=== PATIENT | male | born 1940 | race Caucasian/White ===

== ENCOUNTER 2025-09-02 06:04 | Inpatient (IN) | payer MEDICARE, SELFPAY ==
[2025-08-29 10:16] VITALS: BMI 22.9
[2025-08-29 10:54] LABS: Hematocrit 48.5 % (39.0-52.0); Hemoglobin 16.2 g/dL (13.0-18.0); Mean Corp Hgb Conc. 33.4 g/dL (33.0-37.0); Mean Corpuscular Volume 89.8 fL (80.0-94.0); Red Cell Dist. Width 12.1 % (11.5-14.5)
[2025-08-29 10:55] LABS: Nucleated Red Blood Cells % 0 % (-)
[2025-08-29 10:57] LABS: APTT 26.4 Sec (23.4-35.0); INR 1.11; PT 14.1 Sec (11.4-14.6)
[2025-08-29 11:36] LABS: Blood Urea Nitrogen 27 mg/dl (9-20); Calcium 9.9 mg/dl (8.4-10.2); Carbon Dioxide 30 mmol/L (22-30); Chloride 102 mmol/L (98-107); Estimated Creatinine Clearance 48 ml/min; Glucose 99 mg/dl (70-99); Potassium 5.2 mmol/L (3.5-5.1); Sodium 137 mmol/L (135-145); eGFR > 60.00
[2025-09-02] VITALS (13 sets, daily range): BP systolic 125–147; BP diastolic 58–82; BMI 21.8
[2025-09-02] MEDS: NSS 500 IV (06:51)
[2025-09-02] MEDS: BACTROBAN NASAL 1 GRAM NASAL (06:51)
[2025-09-02] MEDS: PERIDEX 0.12% ORAL RINSE 15 ML PO (06:51)
--- NOTE | 2025-09-02 07:05 | W.SUR.PREOP ---
Pre-Operative Surgical Note
-
I have examined this patient prior to the performance of the scheduled procedure.
The patient's condition is unchanged from the time of the current History and
Physical and the patient is able to undergo the scheduled procedure.
--- NOTE | 2025-09-02 10:12 | W.SUR.POST ---
Surgical Immediate Post Op
Note
Pre Op Diagnosis: AAA
Post Op Diagnosis: AAA
Procedure Performed: EVAR
Primary Surgeon: Azam Redman M.D.
intellectual property legal assistant: MATTHIAS Celaya
Anesthesia: GETA
Estimated Blood Loss: 100 mL
Fluids: See anesthesia flowsheet
Drains/Shunts: N/A
Specimens/Cultures: N/A
Doppler/Duplex/Angio (Y/N): Y
Complications: None
Operative Findings: Successful exclusion of AAA sac via endovascular approach, successful EVAR
[2025-09-02 11:05] LABS: Hematocrit 40.7 % (39.0-52.0); Hemoglobin 13.6 g/dL (13.0-18.0); Mean Corp Hgb Conc. 33.4 g/dL (33.0-37.0); Mean Corpuscular Volume 93.6 fL (80.0-94.0); Platelet Count 117 10^3/uL (130-400); Red Cell Dist. Width 11.9 % (11.5-14.5)
[2025-09-02] MEDS: NSS 1000 IV ×2 (11:30→19:37)
--- NOTE | 2025-09-02 11:30 | PTCARENOTE ---
Rec'd pt from PACU. Pt rec'd A&Ox3. Pleasant. CHALKYITSIK....wears bilateral hearing aids. S1 S2 reg w/ A pacing on monitor. Left chest pacer noted. +DP's. No edema. On R/A...sats 95%. Lungs clear but diminished and coarse in left base. Coughing
and deep breathing encouraged. Abdomen round...+BS. LBM yesterday. Temp sensing long draining yellow urine. Skin pale in color...sacrum intact. Bilateral groin incisions YAMILA w/ surgical glue. Flat in bed until 1300 then HOB 30 degrees max x 4
hrs. Afebrile. VS documented. Left radial abel flushed and zeroed. Multiple INT's...NSS infusing @ 80ml/hr. Call díaz in reach. Safe environment confirmed.
[2025-09-02 12:28] LABS: Blood Urea Nitrogen 20 mg/dl (9-20); Calcium 8.1 mg/dl (8.4-10.2); Carbon Dioxide 24 mmol/L (22-30); Chloride 108 mmol/L (98-107); Estimated Creatinine Clearance 48 ml/min; Glucose 143 mg/dl (70-99); Potassium 4.4 mmol/L (3.5-5.1); Sodium 135 mmol/L (135-145); eGFR > 60.00
--- NOTE | 2025-09-02 12:49 | CON.INTV ---
Consultation
Consultation Request
Date/Time Consultation Requested: 09/02/2025
Date/Time Consultation Performed: 09/02/2025
Requesting Provider: Dr. Redman
Performing Provider: Dr. Van Cooper
Reason for Consultation: s/p EVAR - post operative management.
Medical History
-
History of Present Illness:
85-year-old man with past medical history significant for abdominal aortic aneurysm, hypertension, hyperlipidemia, pacemaker placed. Electively admitted for EVAR. Procedure underwent 09/02/[address] Redman without complication.
Currently in the critical care unit. Denies any abdominal pain.
Denies lower extremity pain.
Denies shortness of breath
Denies nausea or vomiting
Hemodynamically stable.
Past Medical History
Past Medical History: Other (See assessement and plan section)
Social History
Tobacco: Non-smoker
Alcohol: Occasional (Occasional glass of wine)
Drug: None
Living: With Family
Allergies / Home Medications
Allergies
Allergy/AdvReac Type Severity Reaction Status Date / Time
No Known Allergies Allergy Verified 09/02/25 06:36
Home Medications
�Medication �Instructions �Recorded �Confirmed �Last Taken �Type
Beet Root Supp 1 cap PO .BEFORE LUNCH 08/27/25 09/02/25 08/30/25 08:00 History
Vitamin C 1 tab PO .BEFORE LUNCH 08/27/25 09/02/25 08/30/25 08:00 History
Vitamin D3 1 tab PO .BEFORE LUNCH 08/27/25 09/02/25 08/30/25 08:00 History
amlodipine 5 mg tablet 5 mg PO .BEFORE LUNCH 08/27/25 09/02/25 09/01/25 09:00 History
aspirin 81 mg tablet 81 mg PO .BEFORE LUNCH 08/27/25 09/02/25 09/01/25 09:00 History
magnesium 1 tab PO .BEFORE LUNCH 08/27/25 09/02/25 09/01/25 09:00 History
simvastatin 40 mg tablet 40 mg PO .BEFORE LUNCH 08/27/25 09/02/25 08/30/25 08:00 History
valsartan 80 mg tablet 80 mg PO .BEFORE LUNCH 08/27/25 09/02/25 09/01/25 09:00 History
zinc 1 tab PO .BEFORE LUNCH 08/27/25 09/02/25 08/30/25 08:00 History
Review of Systems
-
History Source: Patient
All other systems: Negative unless noted
Vitals / Labs / Diagnostic Testing
Vital Signs
Temp Pulse Resp BP Pulse Ox
96 F L 60 12 142/82 99
09/02/25 11:59 09/02/25 11:19 09/02/25 11:19 09/02/25 11:19 09/02/25 11:19
Lab Data
09/02/25 10:46
09/02/25 10:46
Diagnostic Testing:
Physical Exam
-
HEENT: Normocephalic
Cardiovascular: S1/S2
Respiratory: Non-Labored Respirations
GI: Soft and Non Distended
Neurology: Awake and Alert
Skin: Warm and Other (Peripheral pulses present.)
General: Comfortable
Assessment
-
85-year-old man with past medical history noted. Electively admitted from the outpatient setting to undergo EVAR. Procedure underwent without complication 09/02/2025. Transferred to the critical care unit for postoperative management.
Status post EVAR
History of infra renal aortic aneurysm
Conditions present prior admission:
Hypertension
Hyperlipidemia
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
Assessment and plan:
Postoperative surgical intensive care unit monitoring
Supplemental oxygen as needed
Incentive spirometry
Aspiration precautions
Nebulizers if needed-currently not bronchospastic
Chest x-ray 08/29/2025 -partial opacification of the right lateral costophrenic angle possible postinflammatory scarring. Otherwise normal
Analgesia with narcotics as needed-monitor respiratory status closely.
Currently pain is controlled.
Neuro and vascular checks per protocol
Vascular surgery following-correspondence and operative notes reviewed
Monitor blood pressure
Cardene drip if needed
Restart outpatient antihypertensive.
Follow hemoglobin-currently stable
Follow blood sugars
Insulin supplementation as needed
IV fluids
Advance diet
DVT prophylaxis
Early nutrition
Early mobilization
Continue ICU hemodynamic and neurovascular monitoring per protocol.
--- NOTE | 2025-09-02 16:00 | PTCARENOTE ---
No major changes in physical assessment. Lungs clear but diminished in bases. Remains on R/A...sats 95%. HOB elevated to 30 degrees. at bedside to assess patient. Oral BP meds ordered for elevated BP. Pt able to swallow pills whole w/o
issue. Will advance diet to regular. Call díaz within reach.
[2025-09-02] MEDS: DIOVAN 80 MG PO (16:02)
[2025-09-02] MEDS: NORVASC 5 MG PO (16:02)
[2025-09-02] MEDS: TYLENOL 650 MG PO (16:13)
--- NOTE | 2025-09-02 17:32 | OR.RPT ---
Addendum entered and electronically signed by Azam Redman MD 09/02/25 17:34:
Fluoroscopy data:
Time: 44.7 minutes.
Dose: 342 mGy.
DAP: 51.31
Original Note:
Operative Report
Operative Report
PROCEDURE DATE: 09/02/2025
Preoperative diagnosis: Enlarging saccular infrarenal abdominal aortic aneurysm with concerning morphology as well.
Postoperative diagnosis: Same
Procedure:
1. Endovascular repair of abdominal aortic aneurysm with bifurcated modular endoprosthesis ([employer] Zenith Flex) with bilateral iliac limb extension. (MSWD-60-10-ZT Main body, ZQUG-17-35-ZT Contralateral/left iliac limb, JQGB-16-10-ZT Ipsilateral
iliac limb).
2. Percutaneous bilateral common femoral artery closure.
3. Supervision and interpretation.
Surgeon: Feroz
[employer] Plant Repairer: None
Complications: None
Anesthesia: General
Indications for procedure:
Large 5 cm saccular infrarenal abdominal aortic aneurysm with irregular morphology. Risk/benefits/alternatives of endovascular repair were all fully discussed. Patient understood all wished to proceed. Note had discussed potential use of
fenestrated endograft given mild reverse taper in the infrarenal neck and some mural thrombus noted. However, given the size and irregular appearance of the saccular aneurysm, I felt more expedited repair was warranted. In addition he had a
reasonable length of neck that would likely seal.
Description of procedure:
Patient was identified brought to the operating room placed on the table in supine position. After the adequate administration of anesthesia and perioperative antibiotics he was prepped and draped in the standard surgical fashion. A standard
preoperative timeout was undertaken and everybody was in agreement the plan. Bilateral common femoral artery access was obtained under direct duplex ultrasound guidance. 6 [place] sheaths were placed over 0.035 inch wires. Next, small 1 cm
incisions were made around the sheath entry sites bilaterally. Blunt dissection was undertaken with hemostats to facilitate percutaneous suture delivery. Next, using the ProGlide suture system, percutaneous sutures were deployed at the 10:00 and 2
o'clock position bilaterally in the standard fashion. Suture strands were tagged outside the skin. We exchanged for 11 [place] sheaths bilaterally. Next using a KMP catheter, I guided wires into the supraceliac aorta from bilateral access sites.
On the left side I exchanged out for a pigtail catheter which was positioned in the juxtarenal aorta. The right side I exchanged for a Lunderquist wire. The patient was given 5000 units of intravenous heparin. The main body of the Cook ZenZong
Flex Device 24mm was now oriented under fluoroscopy (straight contralateral, no crossing of limbs), and then the short 11 [place] sheath was exchanged for the delivery device for the main body stent graft.
Once this was advanced to the level of the juxtarenal aorta, power injection aortography was obtained via the left-sided pigtail catheter. This was done in the appropriate obliquity based on the CT scan imaging prior. The right renal artery which
was the lower 1 was visualized well as was the right. These were marked on the screen. Next, the right sided dry seal sheath was withdrawn to the level of the contralateral gate. I confirmed positioning of the contralateral gate and then began
deployment of the stent graft just inferior to the right renal artery. I unsheathed the bare metal stent and then the first two covered stents. I performed angiogram with the pigtail catheter. Demonstrated good positioning but may be a millimeter
too high. Therefore I withdrew the device down about a millimeter or 2. Now I was very satisfied. I was very happy with its positioning and unsheathed it to the level of the contralateral gate which was fully deployed now. At this point the
pigtail catheter was withdrawn down. I then released the first trigger wire and then released the top And thereby deploying the bare-metal top stents. Now, I exchanged over a glide wire for a KMP catheter. Using the KMP catheter, multiple
attempts were undertaken to cannulate the contralateral gate with a flopping of hydrophilic wire. I had great difficulty. It appeared that the contralateral gate was somewhat compressed at its distal aspect and then somewhat narrow aorta here.
Therefore I then tried a couple other catheters including a Vanche 4 and Vanche 5. Could not achieve success with either these despite multiple attempts. At this point after several unsuccessful attempts, I elected to cannulate the contralateral
gate via up and over technique and staring the wire. Therefore at this point I unsheathed the remainder of the ipsilateral limb. I then released the distal constraint wire, and then recaptured the top And withdrew the delivery device maintaining
the sheath in place. Once I did this, I performed a retrograde pelvic angiogram to determine the length of ipsilateral limb extension I would need. However instead of initially advancing and deploying the extension of the iliac ipsilateral limb, I
elected to first try up and over access to get the contralateral gate. I was worried that if I placed the ipsilateral limb it may jailed the contralateral gate more so. Therefore at this point I exchanged for an 18 [place] dry seal sheath on
the right side. (Maintaining Lunderquist wire). I now piggybacked a second puncture in the sheath and advanced a Glidewire into the main body of the stent graft/aorta, and then advanced a beckman's hook catheter. I then shaped the beckman's
hook catheter and pulled downward advancing the Glidewire down the contralateral gate and seeding the beckman's a catheter on the gate. I still had difficulty getting my Glidewire through the contralateral gate as it was somewhat compressed there.
Finally I was able to get the wire out of the contralateral gate and then it sort of veered directly into the aneurysm sac. Despite multiple attempts I could not get it to go down the iliac system instead of the aneurysm sac. At this point, from
the left sided access, I advanced a snare sheath over the wire and then tried to advance a snare. I initially was able to snare the wire, but then I lost the wire and the sheath and the snare catheter came out. I tried to pass the snare catheter
back and pulled the wire back a little bit to resnare it. However I difficulty advancing the snare catheter now. It almost seem like I was in a dissection plane. I performed angiography and confirmed I did look like I was in a dissection plane
here. Therefore I withdrew the snare catheter and snare out of the sheath. Since from the retrograde perspective from the left sheath, my catheter kept getting into a dissection plane, I then advanced the up and over wire all the way down into the
left external iliac artery since that was not a true lumen/true channel. Then I was able to snare it in the distal external iliac artery successfully. I now had through and through access. I therefore then walked out the beckman's hook catheter.
I then advanced up the left side on this through and through Glidewire a KMP catheter which was advanced into the main body of the stent graft. I now lost my through and through wire purposefully, and then advanced instead a Glidewire up the KMP
and then into the supraceliac aorta, and then advanced a KMP catheter, and then exchanged back for a Lunderquist wire. Now I had contralateral successful access. (Contralateral gate cannulation).
Retrograde angiogram was performed. 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 At this point I
performed a retrograde pelvic angiogram and measured the length of contralateral limb I would need.
Next, I exchanged the 11 [place] sheath in the left groin for the delivery sheath for the contralateral limb which is a 13 mm x 74 mm limb. This was then advanced with sufficient overlap into the contralateral gate. Next I unsheathed it in the
standard fashion, carefully landing just short of the iliac bifurcation. (Had been marked on the screen). I was now satisfied with this positioning. I now exchanged out the delivery device maintaining the sheath in place. I now advanced a Cook
[place] PTX 8 mm x 6 cm bare-metal stent which I deployed about half a centimeter distal to the end of the iliac limb in the distal common iliac artery into the external iliac artery to treat the dissected area. This was postangioplasty with an 8 mm
angioplasty balloon. Completion angiogram demonstrated good result. At this point, I now again performed right pelvic angiogram, marking the screen for the bifurcation of the iliac. I then advanced up the right side the ipsilateral iliac limb
extension which was a 13 mm x 90 mm limb. This was then unsheathed with sufficient overlap, and landing just short of the iliac bifurcation. Molding balloon was then used to mold the proximal and distal seal zones as well as all overlap sites.
Completion angiography demonstrated an excellent result with good filling of both renal arteries. Good filling of the main body stent graft in both iliac limbs and good filling of both external and internal iliac arteries. There was no type I
endoleak. There may have been a very subtle late type II endoleak, but was not definitive. At this point I was very satisfied.
Next I exchanged my pigtail catheter back for a Lunderquist wire. Next, I sequentially removed the sheath while cinching down the percutaneous sutures. This was initially done on the right side and then on the left. Once hemostasis was noted the
wire was then withdrawn, the knot was tightened with a knot pusher. Hemostasis was confirmed. The knot was then locked and the suture strands trimmed. This was done as noted on the right initially and then on the left. Hemostasis was fully
achieved bilateral groins with good femoral pulses bilaterally. The small skin incisions were then closed with 4-0 Monocryl subcuticular stitch and Dermabond was applied. Patient tolerated procedure well. He had palpable 2+DP bilaterally upon
completion. He was transported to recovery room in stable condition.
--- NOTE | 2025-09-02 19:07 | PTCARENOTE ---
on assessment pt AAOx3, denies pain and SOB at this time, A paced on the monitor, L radial Kacy intact and zeroed, + pulses, RA 95%, reg diet, long in place, B/L groin sites intact with dermabond YAMILA, no complaints at this time, call díaz in reach
[2025-09-02] MEDS: HEPARIN 5000 UNITS SC (19:36)
[2025-09-03] VITALS (7 sets, daily range): BP systolic 122–149; BP diastolic 62–87; BMI 22.0
--- NOTE | 2025-09-03 00:11 | PTCARENOTE ---
denies pain and SOB, neurovascular checks remain unchanged, call díaz in reach
[2025-09-03 04:27] LABS: Hematocrit 37.3 % (39.0-52.0); Hemoglobin 13.0 g/dL (13.0-18.0); Mean Corp Hgb Conc. 34.9 g/dL (33.0-37.0); Mean Corpuscular Volume 89.9 fL (80.0-94.0); Platelet Count 134 10^3/uL (130-400); Red Cell Dist. Width 12.0 % (11.5-14.5)
[2025-09-03 04:32] LABS: INR 1.23; PT 15.7 Sec (11.4-14.6)
[2025-09-03 04:33] LABS: APTT 29.2 Sec (23.4-35.0)
--- NOTE | 2025-09-03 04:41 | PTCARENOTE ---
no changes from prior assessment, call díaz in reach
[2025-09-03 04:51] LABS: Blood Urea Nitrogen 19 mg/dl (9-20); Calcium 8.4 mg/dl (8.4-10.2); Carbon Dioxide 22 mmol/L (22-30); Chloride 108 mmol/L (98-107); Estimated Creatinine Clearance 53 ml/min; Glucose 133 mg/dl (70-99); Magnesium 1.9 mg/dl (1.6-2.3); Potassium 4.3 mmol/L (3.5-5.1); Sodium 135 mmol/L (135-145); eGFR > 60.00
--- NOTE | 2025-09-03 07:31 | W.PN.VS ---
Addendum entered and electronically signed by Azam Redman MD 09/03/25 15:14:
Seen and examined prior to discharge. Agree with findings as noted below. No complaints. Abdomen soft, nondistended, nontender. Groins flat bilaterally. Small incisions clean dry and intact bilaterally. Feet warm with palpable pedal pulses.
Plan/as discussed and noted below.
Addendum entered and electronically signed by MATTHIAS Conde 09/03/25 12:05:
Reevaluated patient, bilateral groin puncture sites remain clean, dry, and intact. Vital signs remained stable. Patient was able to void following Marie removal without difficulty. Ambulating without difficulty. Cleared for discharge. Reviewed
all discharge instructions, addressed all questions and concerns.
Original Note:
Today's Communication / Plan
-
Below plan reviewed with attending.
Assessment/Plan
-
Assessment: 85-year-old male POD #1 EVAR for AAA
Plan:
Discontinue IV fluid
Discontinue arterial line
Out of bed to chair with progression to ambulation as tolerated
Discontinue Marie catheter
Continue antiplatelet of aspirin 81 mg p.o. daily
Continue statin
Possible discharge later this afternoon pending patient progression
Subjective Data
-
Date of Service: September 03, 2025
Patient seen examined at bedside, offers no complaints other than difficulty sleeping overnight. Denies nausea, vomiting, fever, and chills. Reports well-managed to no pain at bilateral groin puncture sites.
Objective Data
-
Vital Signs
Temp Pulse Resp BP Pulse Ox
97.8 F 62 13 122/71 95
09/03/25 04:00 09/03/25 06:00 09/03/25 06:00 09/03/25 06:00 09/03/25 06:00
Intake and Output
09/02/25 09/03/25 09/04/25
06:59 06:59 06:59
Intake Total 1989
Output Total 2114
Balance -125 / -125
Intake:
Oral fluids 340 / 340
IV fluids (Total) 1650 / 1650
Nss 1,000 ml @ 80 mls/hr IV . 1600 / 1600
[id number] KASI Rx#:[id number]
normosol 50 / 50
Output:
Urine, Marie 2114
Lab Results
09/03/25 04:05
09/03/25 04:05
Calcium 8.4 mg/dl (8.4-10.2) 09/03/25 04:05
Phosphorus 2.8 mg/dl (2.5-4.5) 09/03/25 04:05
Magnesium 1.9 mg/dl (1.6-2.3) 09/03/25 04:05
Physical Exam
-
No apparent distress, resting bed comfortably
No tachycardia
No dyspnea on room air
ABD flat, nontender, nondistended
Bilateral groin puncture sites clean, dry, and intact, Exofin glue intact, no evidence of hematoma
Bilateral feet warm with +1 palpable DP pulses
Marie draining clear yellow urine
[2025-09-03] MEDS: HEPARIN 5000 UNITS SC (07:47)
--- NOTE | 2025-09-03 08:00 | PTCARENOTE ---
Assumed care of patient. Pt rec'd A&Ox3. Pleasant. [place]....wears bilateral hearing aids. S1 S2 reg w/ A pacing on monitor. Left chest pacer noted. +DP's. No edema. On R/A...sats 96%. Lungs clear but diminished. Coughing and deep breathing
encouraged. Abdomen round...+BS. Temp sensing long draining yellow urine...d/c'd @ 0800. Skin pale in color...sacrum intact. 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 Afebrile. VS documented. Left radial abel d/c'd. IVF's d/c'd.
Call díaz in reach. Breakfast ordered. Safe environment confirmed.
[2025-09-03] MEDS: DIOVAN 80 MG PO (10:32)
[2025-09-03] MEDS: TYLENOL 650 MG PO (10:32)
[2025-09-03] MEDS: NORVASC 5 MG PO (10:32)
[2025-09-03] MEDS: ASPIR LOW (ENTERIC COATED) 81 MG PO (10:32)
[2025-09-03] MEDS: LIPITOR 20 MG PO (10:33)
--- NOTE | 2025-09-03 10:53 | W.PN.INTV ---
Today's Communication / Plan
Recommendations
Continue postoperative care
Increase mobility
Discharge planning per primary team
Sign off
Assessment
-
85-year-old man with past medical history noted. Electively admitted from the outpatient setting to undergo EVAR. Procedure underwent without complication 09/02/2025. Transferred to the critical care unit for postoperative management.
Status post EVAR
History of infra renal aortic aneurysm
Conditions present prior admission:
Hypertension
Hyperlipidemia
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
Assessment and plan:
Postoperative day 1
Doing well, hemodynamic stable overnight
Asymptomatic
Incisions are intact without hematoma
Stable hemoglobin
Normal renal function
-
Encouraged mobility
Arterial line has been discontinued
Incentive spirometry-encourage.
-
Chest x-ray 08/29/2025 -partial opacification of the right lateral costophrenic angle possible postinflammatory scarring. Otherwise normal
Analgesia with narcotics as needed-monitor respiratory status closely.
Currently pain is controlled.
Neuro and vascular checks per protocol-Will continue. Currently intact.
Vascular surgery following-correspondence and operative notes reviewed
Possible discharge planning later today.
Stable hemodynamic
Continue antihypertensive
Follow hemoglobin-currently stable
Tolerating diet
IV fluids have been discontinued
DVT prophylaxis
No additional critical care recommendations.
Sign off per
Hopefully can be discharged later today. If not discharged downgrade to telemetry
Subjective Dataa
Subjective Data
Date of Service:
Date of Service: September 03, 2025
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
Subjective:
Patient denies any specific complaints this morning
He did well overnight
Denies any groin discomfort
Denies leg pain.
Review of Systems
Cardiopulmonary: Dyspnea (n), Dyspnea on Exertion (n), Cough (n) and Sputum Production (n)
GI: Abdominal Pain (n) and Nausea (n)
Objective Data
Data Reviewed
Vital Signs / I&O / Oxygen:
Vital Signs
Temp Pulse Resp BP Pulse Ox
97.5 F 64 17 135/63 96
09/03/25 08:00 09/03/25 10:32 09/03/25 08:15 09/03/25 10:32 09/03/25 08:15
Intake and Output
09/02/25 09/03/25 09/04/25
06:59 06:59 06:59
Intake Total 1989 80 / 80
Output Total 2114 / 2464 675 / 675
Balance -125 / -395 -595 / -595
SaO2 96
Physical Exam
General: Comfortable
HEENT: Normocephalic
Cardiovascular: S1-S2
Respiratory: Non-Labored Respirations
GI: Soft and Non Distended
Neurology: Awake, AO x 3 and No Motor Deficits
Skin: Good Color and Other (Groin incisions are intact. No hematoma)
Labs/Micro/Reports
Lab Data
09/03/25 04:05
09/03/25 04:05
Laboratory Results
09/03/25
04:05
PT 15.7 H
INR 1.23
APTT 29.2
--- NOTE | 2025-09-03 12:00 | PTCARENOTE ---
OOB in chair and resting comfortably. Able to ambulate in room. Voided in bathroom. No major changes in physical assessment. Tentative d/c home.
--- NOTE | 2025-09-03 12:05 | W.DS.TRANS ---
DC Summary - Erp Pm
-
Discharge Instructions:
Discharge Diagnosis/Procedures Diagnosis: Enlarging saccular infrarenal
abdominal aortic aneurysm with concerning
morphology as well.
Procedure:
1. Endovascular repair of abdominal aortic
aneurysm with bifurcated modular endoprosthesis
(Cook Zenith Flex) with bilateral iliac limb
extension. (JZVO-25-51-ZT Main body, ZSLE--
ZT Contralateral/left iliac limb, SEDJ-42-40-ZT
Ipsilateral iliac limb).
2. Percutaneous bilateral common femoral artery
closure.
Diet As tolerated
Activity No strenuous activity
Driving Restrictions No driving for 1 week
Bathing Restrictions OK to Shower
Instructions:
Stand-Alone Forms: Vascular Surg Discharge Instr
Changes to Home Medications: No
Discharge Medications:
DC Medications w/original date entered in [facility]
Beet Root Supp 1 cap PO .BEFORE LUNCH Supplement 08/27/25
Vitamin C 1 tab PO .BEFORE LUNCH Supplement 08/27/25
Vitamin D3 1 tab PO .BEFORE LUNCH Supplement 08/27/25
amlodipine 5 mg tablet 5 mg PO .BEFORE LUNCH Blood Pressure 08/27/25
aspirin 81 mg tablet 81 mg PO .BEFORE LUNCH Blood Clot Prevention/Tx 08/27/25
magnesium 1 tab PO .BEFORE LUNCH Supplement 08/27/25
simvastatin 40 mg tablet 40 mg PO .BEFORE LUNCH High Cholesterol 08/27/25
valsartan 80 mg tablet 80 mg PO .BEFORE LUNCH Blood Pressure 08/27/25
zinc 1 tab PO .BEFORE LUNCH Supplement 08/27/25
Home Medication Changes
Pending Results: No
--- NOTE | 2025-09-03 12:49 | CM ---
Addendum entered by Sherrie Marrero 09/03/25 13:03:
Family Physician verified: Alex Banks; NPI #[id number]
[facility]
[address] [place] [id number]
phone # [phone]
Original Note:
Met with patient at bedside
IMM explained; form signed @ 1240
Local Pharmacy verified: [address]
Primary Residence in [place], [place]; lives w/ Adult Son
Family Physician Dr Alex Banks; phone # [phone]
Staying at Daughter's multilevel home; 3 steps to enter; railing on stairs; 12 steps to 2nd floor; half bath on first floor; plans to stay on 1st floor for 1 week, then will sleep in 2nd floor bedroom
PLOF: reported he is active, golfs; independent w/ ambulation, stairs, ADLs; driving; no DME
Family will transport home
Plan: Discharge to home; no services
--- NOTE | 2025-09-03 14:30 | PTCARENOTE ---
Pt discharged to [facility]. Son in law to drive pt home. IV sites and monitor removed. All belongings removed from room. D/c instructions reviewed and copy provided to pt. All questions answered. Wheelchair escort w/ staff to son in laws car.
== END 2025-09-03 14:38 | disposition home or self-care (01) | DRG 269 ==
LOC: ICU 06:04
PROVIDERS: Nurse Practitioner; ADMITTING PHYSICIAN Surgery Vascular Surgery; CONSULT PHYSICIAN Internal Medicine Critical Care Medicine
PROC: 04V03DZ Restriction of Abdominal Aorta with Intraluminal Device, Percutaneous Approach (ICD-10-PCS; 2025-09-02)
DX: I71.43 Infrarenal abdominal aortic aneurysm, without rupture (principal); I10 Essential (primary) hypertension; E78.5 Hyperlipidemia, unspecified; Z95.0 Presence of cardiac pacemaker; Z79.899 Other long term (current) drug therapy
CPT/HCPCS: 36415; 71045; 71046; 80048; 83735; 84100; 85025; 85027; 85610; 85730; 86850; 86900; 86901; 93005; C1725; C1760; C1769; C1773; C1874; C1887; C1892; C1894; C2628; Q9967